=== PATIENT | female | born 1975 | race Caucasian/White ===

== ENCOUNTER → 2016-12-23 | Outpatient (CLI) | payer OTHER ==
--- NOTE | 2016-12-23 11:08 | US ---
EXAMINATION TYPE: US pelvic complete DATE OF EXAM: 12/23/2016 COMPARISON: Prior OB US CLINICAL HISTORY: Pelvic Pain R10.2. Patient stated had Left groin pain couple weeks past; denies her west or outpouch of tissue at left groin; C section delivery 11 months ago; TECHNIQUE: Transabdominal (TA) Date of LMP: 12/18/2016 EXAM MEASUREMENTS: Uterus: 11.3 x 6.5 x 5.1 cm Endometrial Stripe: 0.4 cm Right Ovary: 4.0 x 2.2 x 2.3 cm Left Ovary: 3.1 x 2.8 x 1.9 cm 1. Uterus: Anteverted, C section indentation of uterine wall at ALAN is noted 2. Endometrium: thickness is wnl Day 6 LMP 3. Right Ovary: multiple small follicles 4. Left Ovary: multiple follicles with largest = 1.1 x 1.0 x 0.8cm Spectral, color and waveform doppler imaging shows good arterial and venous flow within the ovaries ; there is no evidence for ovarian torsion. 5. Bilateral Adnexa: wnl 6. Posterior cul-de-sac: wnl IMPRESSION: NORMAL PELVIC ULTRASOUND.
== END | disposition home or self-care (01) ==
LOC: RADUSWWP 10:12
PROVIDERS: ATTEND Obstetrics & Gynecology
DX: R10.2 Pelvic and perineal pain (principal)
CPT/HCPCS: 76856